=== PATIENT | male | born 1995 | race Caucasian/White ===

== ENCOUNTER 2017-02-09 20:31 | Emergency (ER) | payer MEDICAID, SELFPAY ==
[~2017-02-09] VITALS: Ht 170.2 cm; Wt 150.0 kg
[2017-02-09 20:36] VITALS: BP 125/64
[2017-02-09] MEDS ORDERED: TYLE500T78 PO (20:41)
== END 2017-02-10 02:30 | disposition left against medical advice (07) ==
LOC: M ED 20:31
DX: M54.9 Dorsalgia, unspecified (principal); Z53.21 Procedure and treatment not carried out due to patient leaving prior to being seen by health care provider

== ENCOUNTER 2017-09-22 14:02 | Emergency (ER) | payer SELFPAY ==
[2017-09-22] MEDS: ADACEL/BOOSTRIX VACCINE (DIPHTH/PERTUSS/ACELL/TETANUS)0.5ML SYR (90715) IM (14:00)
== END 2017-09-22 14:52 | disposition home or self-care (01) ==
LOC: M ED 14:02
DX: S91.331A Puncture wound without foreign body, right foot, initial encounter (principal); W45.0XXA Nail entering through skin, initial encounter; Y92.59 Other trade areas as the place of occurrence of the external cause; Y99.0 Civilian activity done for income or pay; F17.210 Nicotine dependence, cigarettes, uncomplicated
CPT/HCPCS: 73650

== ENCOUNTER 2019-08-21 01:35 | Emergency (ER) | payer SELFPAY ==
[~2019-08-21] VITALS: Ht 170.2 cm; Wt 68.2 kg
[2019-08-21 01:35] VITALS: BP 141/82
[~2019-08-21 01:35] MED LIST: CLEO300C2 PO; IBUP-1022 PO; TYLE500T78 PO
[2019-08-21] MEDS ORDERED: ACET-683 PO (01:40)
[2019-08-21] MEDS ORDERED: IBUP-1022 PO (01:59)
[2019-08-21] MEDS ORDERED: NORC1TAB7 PO (01:59)
[2019-08-21] MEDS ORDERED: AUGM875T28 PO (01:59)
[2019-08-21] MEDS ORDERED: IBUPROFEN 600 MG TAB PO ONE (02:00)
[2019-08-21] MEDS ORDERED: AUGMENTIN 875 MG TAB PO ONE (02:00)
[2019-08-21] MEDS ORDERED: NORCO 5/325MG TABLET (BULK FOR ED) PO ONE (02:00)
[2019-08-21] MEDS ORDERED: MAGICMW SSP (02:03)
[2019-08-21] MEDS ORDERED: ANBE20GE TOP (02:03)
== END 2019-08-21 02:25 | disposition home or self-care (01) ==
LOC: M ED 01:35
DX: K02.9 Dental caries, unspecified (principal); K03.81 Cracked tooth; F17.218 Nicotine dependence, cigarettes, with other nicotine-induced disorders

== ENCOUNTER 2020-05-06 19:14 | Emergency (ER) | payer MEDICAID, SELFPAY ==
[~2020-05-06] VITALS: Ht 167.6 cm; Wt 63.6 kg
[~2020-05-06 19:14] MED LIST changes: +ACET-683 PO; +ANBE20GE TOP; +AUGM875T28 PO; +MAGICMW SSP; +NORC1TAB7 PO
[2020-05-06] MEDS ORDERED: ACETAMINOPHEN TAB 650MG DOSE (2X325MG) PO ONE (19:45)
[2020-05-06] MEDS ORDERED: IBUPROFEN 800 MG TAB PO ONE (19:45)
[2020-05-06] MEDS ORDERED: ONDANSETRON 4 MG ORAL DISINTEGRATING TAB PO ONE (19:45)
--- NOTE | 2020-05-06 20:14 | REP ---
INDICATION: COUGH, SOB COMPARISON: None. TECHNIQUE: Portable AP view of the chest FINDINGS: The mediastinum and cardiac silhouette are within normal limits for portable technique. The lung everett are clear without acute consolidation, effusion, or pneumothorax. Skeletal structures are intact. IMPRESSION: No acute cardiopulmonary process appreciated. <Electronically signed by Richie Demarco > 05/06/202010
[2020-05-06] MEDS ORDERED: ONDA4TAB6 PO (21:57)
[2020-05-06 22:17] VITALS: BP 124/76
== END 2020-05-06 22:36 | disposition home or self-care (01) ==
LOC: M ED 19:14
DX: Z20.828 Contact with and (suspected) exposure to other viral communicable diseases (principal); B34.9 Viral infection, unspecified
CPT/HCPCS: 71045; 99284; Q0162; U0003

== ENCOUNTER 2020-05-29 11:14 | Emergency (ER) | payer MEDICAID, SELFPAY ==
[~2020-05-29] VITALS: Ht 170.2 cm; Wt 63.7 kg
[~2020-05-29 11:14] MED LIST changes: +ONDA4TAB6 PO
[2020-05-29] MEDS ORDERED: NS 1,000 ML IV ONE (12:00)
[2020-05-29 12:15] LABS: BASO % 0.2 % (0.0-1.0); EOS % 0.1 % (0.0-3.0); HEMATOCRIT 44.2 % (42.0-52.0); HEMOGLOBIN 14.8 g/dl (13.5-17.5); LYMPH # 1.6 10^3/uL (1.5-5.0); MEAN CORPUSCULAR HEMOGLOBIN 30.5 pg (27.0-33.0); MEAN CORPUSCULAR HGB CONC 33.5 g/dl (32.0-36.5); MEAN CORPUSCULAR VOLUME 91.1 fl (80.0-96.0); MONO # 1.2 10^3/uL (0.0-0.8); MONO % 6.3 % (0.0-5.0); NEUTROPHILS # 16.5 10^3/uL (1.5-8.5); NEUTROPHILS % 84.8 % (36.0-66.0); PLATELET COUNT, AUTOMATED 207 10^3/uL (150-450); RED BLOOD COUNT 4.85 10^6/uL (4.30-6.10); WHITE BLOOD COUNT 19.4 10^3/uL (4.0-10.0)
[2020-05-29 12:34] LABS: ERYTHROCYTE SEDIMENTATION RATE 21 mm/hr (0-15)
[2020-05-29 12:38] LABS: ALBUMIN 4.1 GM/DL (3.2-5.2); BILIRUBIN,DIRECT 0.4 MG/DL (0.0-0.2); BILIRUBIN,TOTAL 1.2 MG/DL (0.2-1.0); C REACTIVE PROTEIN QUANTITATIV 12.7 MG/DL (0.00-0.30); TOTAL PROTEIN 7.5 GM/DL (6.4-8.2)
[2020-05-29] MEDS ORDERED: ceFAZolin SOD 1 GM in D5W MINI-BAG PLUS 50 ML IV ONE (12:45)
[2020-05-29] MEDS ORDERED: KETOROLAC 30 MG/ML 1ML VIAL IV ONE (13:00)
[2020-05-29] MEDS ORDERED: ONDA4TAB6 PO (14:02)
[2020-05-29] MEDS ORDERED: DOXY100C37 PO (14:02)
[2020-05-29 14:16] VITALS: BP 126/61
== END 2020-05-29 14:22 | disposition home or self-care (01) ==
LOC: M ED 11:14
DX: S40.861A Insect bite (nonvenomous) of right upper arm, initial encounter (principal); W57.XXXA Bitten or stung by nonvenomous insect and other nonvenomous arthropods, initial encounter; Y92.89 Other specified places as the place of occurrence of the external cause; F17.210 Nicotine dependence, cigarettes, uncomplicated
CPT/HCPCS: 80047; 80076; 83605; 85025; 85652; 86140; 87040; 96361; 96365; 96375; 99284; J0690; J1885

== ENCOUNTER 2020-05-31 15:23 | Inpatient (IN) | payer MEDICAID ==
[~2020-05-31] VITALS: Ht 167.6 cm; Wt 60.8 kg
[~2020-05-31 15:23] MED LIST changes: +DOXY100C37 PO
--- OUTSIDE RECORDS SUMMARY | 2020-05-31 15:31 | CCD ---
Author Author [facility] Organization [facility] Address Unknown Phone Unavailable Support Name Relationship Address [place] [address] Unavailable [place] [address] - UE Next Of Kin Unknown Unavailable MULU ROSEN Next Of Kin [address] [place] [address] BRYAN [place] [address] ST Next Of Kin Unknown Unavailable MULU TOLBERT Next Of Kin [address] [place] [address] ALLY ROSEN Next Of Kin [address] [place] [address] Re-disclosure Warning The records that you are about to access may contain information from federally-assisted alcohol or drug abuse programs. If such information is present, then the following federally mandated warning applies: This information has been disclosed to you from records protected by federal confidentiality rules (42 CFR part 2). The federal rules prohibit you from making any further disclosure of this information unless further disclosure is expressly permitted by the written consent of the person to whom it pertains or as otherwise permitted by 42 CFR part 2. A general authorization for the release of medical or other information is NOT sufficient for this purpose. The Federal rules restrict any use of the information to criminally investigate or prosecute any alcohol or drug abuse patient.The records that you are about to access may contain highly sensitive health information, the redisclosure of which is protected by Article 27-F of the [facility] Public Health law. If you continue you may have access to information: Regarding HIV / AIDS; Provided by facilities licensed or operated by the [facility] Office of Mental Health; or Provided by the [facility] Office for People With Developmental Disabilities. If such information is present, then the following [facility] mandated warning applies: This information has been disclosed to you from confidential records which are protected by state law. State law prohibits you from making any further disclosure of this information without the specific written consent of the person to whom it pertains, or as otherwise permitted by law. Any unauthorized further disclosure in violation of state law may result in a fine or long term sentence or both. A general authorization for the release of medical or other information is NOT sufficient authorization for further disc losure. Insurance Providers Payer name Policy type / Coverage type Policy ID Covered alliance party ID Covered alliance party's relationship to gould Policy Gould Plan Information EMEDNY [id number] SP [id number] SELF PAY ONLY [id number] SP [id number] SELF PAY O [id number] S [id number] MEDICAID [id number] SP [id number] SELF PAY ONLY UNAVAILABLE UNAV AILABLE SELF PAY UNAVAILABLE UNAVAILA BLE O UNAVAILABLE UNAVAILA BLE AETNA [facility] [id number] MO2 [id number] HEALTH WELFARE BENEFIT SYS [id number] MO2 [id number] MEDICAID [id number] SP [id number] SRC AETNA [id number] MO2 [id number] 4 AETNA P [id number] C [id number] 4 Results ID Date Data Source [id number] 05/06/2020 07:14:00 PM EST [facility] Name Value Range Interpretation Code Description Data Mikayla rce(s) Supporting Document(s) SARS coronavirus 2 RNA [facility] This lab was ordered by [facility] and reported by [facility]. Procedure
[2020-05-31] MEDS ORDERED: IBUP200T45 PO ×2 (15:37)
[2020-05-31] MEDS ORDERED: ACET-897 PO (15:37)
--- OUTSIDE RECORDS SUMMARY | 2020-05-31 16:06 | CCD ---
Author Author [facility] Organization [facility] Address Unknown Phone Unavailable Support Name Relationship Address Phone [place] [address] Unavailable [place] [address] - UE Next Of Kin Unknown Unavailable MULU ROSEN Next Of Kin [address] [place] [address] BRYAN TOLBERT [place] [address] ST Next Of Kin Unknown Unavailable MULU TOLBERT Next Of Kin [address] [place] [address] ALLY ROSEN Next Of Kin [address] [place] [address] Re-disclosure Warning The records that you are [...] is protected by Article 27-F of the [facility] Public Health law. If you continue you may have access to information: Regarding HIV / AIDS; Provided by facilities licensed or operated by the [facility] Office of Mental Health; or Provided by the [facility] Office for People With Developmental Disabilities. If such information is present, then the following [facility] mandated warning applies: This information has [...] law may result in a fine or fci sentence or both. A general authorization for the release of medical or other information is NOT sufficient authorization for further disc losure. Insurance Providers Payer name Policy type / Coverage type Policy ID Covered democrat ID Covered democrat's relationship to gould Policy Gould Plan Information EMEDNY [id number] SP [id number] SELF PAY ONLY [id number] SP [id number] SELF PAY O [id number] S [id number] MEDICAID [id number] SP [id number] SELF PAY ONLY UNAVAILABLE UNAV AILABLE SELF PAY UNAVAILABLE UNAVAILA BLE O UNAVAILABLE UNAVAILA BLE AETNA [facility] [id number] MO2 [id number] HEALTH WELFARE BENEFIT SYS [id number] MO2 [id number] MEDICAID [id number] SP [id number] SRC AETNA [id number] MO2 [id number] 4 AETNA P [id number] C [id number] 4 Results ID Date Data Source [id number] 05/06/2020 07:14:00 PM EST [facility] Name Value Range Interpretation Code Description Data Mikayla rce(s) Supporting Document(s) SARS coronavirus 2 RNA [facility] This lab was ordered by [facility] and reported by [facility]. Procedure
[2020-05-31] MEDS ORDERED: NS 1,000 ML IV ONE (17:00)
[2020-05-31] MEDS ORDERED: VANCOMYCIN HCL 1,250 MG in IV FLUID PLACE HOLDER 1 EA IV ONE (17:00)
[2020-05-31] MEDS ORDERED: VANCOMYCIN HCL 750 MG, VIAL MATE ADAPTER 1 EACH in D5W 250 ML IV ONE (17:15)
[2020-05-31 18:00] LABS: BASO % 0.2 % (0.0-1.0); EOS # 0.1 10^3/uL (0.0-0.5); EOS % 0.8 % (0.0-3.0); HEMATOCRIT 42.9 % (42.0-52.0); HEMOGLOBIN 14.5 g/dl (13.5-17.5); LYMPH # 2.2 10^3/uL (1.5-5.0); LYMPH % 13.5 % (24.0-44.0); MEAN CORPUSCULAR HEMOGLOBIN 31.3 pg (27.0-33.0); MEAN CORPUSCULAR HGB CONC 33.8 g/dl (32.0-36.5); MEAN CORPUSCULAR VOLUME 92.5 fl (80.0-96.0); MONO % 6.1 % (0.0-5.0); NEUTROPHILS # 12.9 10^3/uL (1.5-8.5); NEUTROPHILS % 78.9 % (36.0-66.0); PLATELET COUNT, AUTOMATED 238 10^3/uL (150-450); RED BLOOD COUNT 4.64 10^6/uL (4.30-6.10); WHITE BLOOD COUNT 16.3 10^3/uL (4.0-10.0)
[2020-05-31] MEDS ORDERED: VANCOMYCIN HCL 500 MG in D5W MINI-BAG PLUS 100 ML IV ONE (18:15)
[2020-05-31 18:28] LABS: BILIRUBIN,DIRECT 0.2 MG/DL (0.0-0.2); BILIRUBIN,TOTAL 0.6 MG/DL (0.2-1.0); C REACTIVE PROTEIN QUANTITATIV 14.2 MG/DL (0.00-0.30); ERYTHROCYTE SEDIMENTATION RATE 43 mm/hr (0-15); TOTAL PROTEIN 7.6 GM/DL (6.4-8.2)
[2020-05-31] MEDS ORDERED: KETOROLAC 30 MG/ML 1ML VIAL IV ONE (18:30)
[2020-05-31] MEDS ORDERED: MOM 30ML SUSPENSION UDC PO PRN (20:15)
[2020-05-31] MEDS ORDERED: ACETAMINOPHEN TAB 650MG DOSE (2X325MG) PO PRN (20:15)
[2020-05-31] MEDS ORDERED: MAALOX 30 ML SUSP *UDC PO PRN (20:15)
[2020-05-31] MEDS ORDERED: NS 1,000 ML IV SCH (20:30)
--- OUTSIDE RECORDS SUMMARY | 2020-05-31 20:38 | CCD ---
Author Author [facility] Organization [facility] Address Unknown Phone Unavailable Support Name Relationship Address Phone [place] [address] Unavailable [place] [address] - UE Next Of Kin Unknown Unavailable MULU ROSEN Next Of Kin [address] [place] [address] BRYAN TOLBERT [place] [address] ST Next Of Kin Unknown Unavailable MULU TOLBERT Next Of Kin [address] [place] [address] ALLY ROSEN Next Of Kin [address] [place] [address] Re-disclosure Warning The records that you are [...] is protected by Article 27-F of the [facility] Public Health law. If you continue you may have access to information: Regarding HIV / AIDS; Provided by facilities licensed or operated by the [facility] Office of Mental Health; or Provided by the [facility] Office for People With Developmental Disabilities. If such information is present, then the following [facility] mandated warning applies: This information has [...] law may result in a fine or shelter sentence or both. A general authorization for the release of medical or other information is NOT sufficient authorization for further disc losure. Insurance Providers Payer name Policy type / Coverage type Policy ID Covered republican ID Covered republican's relationship to gould Policy Gould Plan Information EMEDNY [id number] SP [id number] SELF PAY ONLY [id number] SP [id number] SELF PAY O [id number] S [id number] MEDICAID [id number] SP [id number] SELF PAY ONLY UNAVAILABLE UNAV AILABLE SELF PAY UNAVAILABLE UNAVAILA BLE O UNAVAILABLE UNAVAILA BLE AETNA [facility] [id number] MO2 [id number] HEALTH WELFARE BENEFIT SYS [id number] MO2 [id number] MEDICAID [id number] SP [id number] SRC AETNA [id number] MO2 [id number] 4 AETNA P [id number] C [id number] 4 Results ID Date Data Source [id number] 05/06/2020 07:14:00 PM EST [facility] Name Value Range Interpretation Code Description Data Mikayla rce(s) Supporting Document(s) SARS coronavirus 2 RNA [facility] This lab was ordered by [facility] and reported by [facility]. Procedure
[2020-05-31 20:43] LABS: RSV AMPLIFICATION NEGATIVE (NEGATIVE)
[2020-05-31] MEDS ORDERED: VARENICLINE 0.5 MG TABLET PO SCH (21:00)
--- NOTE | 2020-05-31 21:01 | HPEPDOC ---
[facility] Medical History & Physical Date of Admission May 31, 2020 Date of Service: May 31, 2020 Attending Physician: RITA ROSE MD History and Physical TIME OF SERVICE: 934pm CHIEF COMPLAINT: arm swelling HISTORY OF PRESENT ILLNESS: This 25 yr old M presented on May 29 w c/o right arm redness and swelling possibly 2/2 spider bite; he was sent home w doxycyline, but returned this evening w c/o worsening pain redness and swelling along tingling in the arm with numbness. He has also had fevers chills and nausea w/o vomiting. He was stared on Vancomycin REVIEW OF SYSTEMS: 12-point review of systems negative except as listed in HPI PAST MEDICAL/ SURGICAL HISTORY: none SOCIAL HISTORY: + tobacco / no alcohol / + THC FAMILY HISTORY: none ALLERGIES: Please see below. HOME MEDICATIONS: Please see below. PHYSICAL EXAMINATION: Vital Signs Date Time Temp Pulse Resp B/P (MAP) Pulse Ox O2 Delivery O2 Flow Rate FiO2 05/31/20 15:23 97.6 94 18 112/72 (85) 100 Room Air GENERAL APPEARANCE: appears ill/ NAD HEENT: EOMI CARDIOVASCULAR: RRR/NMRG LUNGS: CTAB on RA ABDOMEN: Flat MUSCULOSKELETAL: TAWANDA x 4 / c/o pain w passive movement of the left shoulder and left elbow INTEGUMENT: redness extending across the posterior lateral upper arm down to the medial upper arm /there is a rounded fluid collection just posterior and inferior to the deltoid muscle NEUROLOGICAL:CN 2-12 intact /speech not dysarthric PSYCHIATRIC: A&O x 3 LABORATORY DATA: Laboratory Tests 05/31/20 17:44 Laboratory Tests 2 05/31/20 17:42: POC Glucose (Misc Panel) 91, POC Sodium (Misc Panel) 140, POC Potassium (Misc Panel) 3.6, POC Chloride (Misc Panel) 101, POC Total CO2 (Misc Panel) 31.0H, POC Blood Urea Nitrogen (Misc Panel 9, POC Ionized Calcium (Misc Panel) 4.9, POC Creatinine (Misc Panel) 0.7, POC Hematocrit (Misc Panel) 44.0 05/31/20 17:44: Immature Granulocyte % (Auto) 0.5, Neutrophils (%) (Auto) 78.9H, Lymphocytes (%) (Auto) 13.5L, Monocytes (%) (Auto) 6.1H, Eosinophils (%) (Auto) 0.8, Basophils (%) (Auto) 0.2, Neutrophils # (Auto) 12.9H, Lymphocytes # (Auto) 2.2, Monocytes # (Auto) 1.0H, Eosinophils # (Auto) 0.1, Basophils # (Auto) 0.0, Nucleated Red Blood Cells % (auto) 0.0, Erythrocyte Sedimentation Rate 43H, Lactic Acid Level 1.0, Total Bilirubin 0.6, Direct Bilirubin 0.2, Aspartate Amino Transf (AST/SGOT) 14, Alanine Aminotransferase (ALT/SGPT) 18, Alkaline Phosphatase 82, C-Reactive Protein, Quantitative 14.20H, Total Protein 7.6, Albumin 4.0, Albumin/Globulin Ratio 1.1 05/31/20 19:53: Coronavirus (COVID-19)(PCR) NEGATIVE, Influenza Type A (RT-PCR) NEGATIVE, Influenza Type B (RT-PCR) NEGATIVE, Respiratory Syncytial Virus (PCR) NEGATIVE 05/31/20 20:48: IMAGING: n/a MICROBIOLOGY: blood cx pending ASSESSMENT: is a 25 yr old who will be admitted for management of RUE abscess with cellulitis. PLAN: 1. RUE Abscess with Cellulitis WBC, CRP & ESR elevated Plan: admit to medical floor/ called to perform I&D / f/u CPK and lactic acid t screen for NEC fasciitis / IV Cefazolin for MSSA and beta hemolytic strep + Vancomycin for MRSA and beta hemolytic strep 2.Tobacco Abuse Plan: nicotine patch/ smoking cessation education / per ATS 2020 guidelines start varenicline for 12 weeks DVT Px w SCDs Home after more than 2 midnights stay Home Medications Scheduled Doxycycline Monohydrate (Doxycycline Monohydrate) 100 Mg Capsule, 100 MG PO Q12H Scheduled PRN Acetaminophen (Tylenol Extra Strength) 500 Mg Tablet, 500 MG PO Q4H PRN for PAIN Ibuprofen (Ibu-200) 200 Mg Tablet, 400 MG PO Q4H PRN for PAIN Ondansetron (Ondansetron Odt) 4 Mg Tab.rapdis, 4 MG PO Q6-8HP PRN for nausea/vomiting Allergies Coded Allergies: No Known Allergies (Unverified , 02/09/17) A-FIB/CHADSVASC A-FIB History Current/History of A-Fib/PAF?: No Current PO Anticoag Therapy: No RITA ROSE MD May 31, 2020 21:01
[2020-05-31 21:22] LABS: AMPHETAMINES LEVEL URINE NEGATIVE (NEGATIVE); BARBITURATES URINE NEGATIVE (NEGATIVE); BENZODIAZEPINES URINE NEGATIVE (NEGATIVE); CANNABINOIDS URINE POSITIVE (NEGATIVE); COCAINE METABOLITE URINE NEGATIVE (NEGATIVE); METHADONE URINE NEGATIVE (NEGATIVE); OPIATES URINE NEGATIVE (NEGATIVE); PHENCYCLIDINE URINE NEGATIVE (NEGATIVE)
[2020-05-31] MEDS ORDERED: LIDOCAINE 1% MDV 20ML VIAL IM ONE (22:00)
[2020-05-31] MEDS ORDERED: ceFAZolin SOD 1 GM in D5W MINI-BAG PLUS 50 ML IV SCH (22:00)
[2020-05-31] MEDS ORDERED: MORPHINE 2 MG/ML 1ML VIAL (J2270) IV PRN (23:15)
[2020-05-31] MEDS ORDERED: ONDANSETRON 4MG/2ML VIAL IV PRN (23:15)
[2020-06-01] MEDS ORDERED: ceFAZolin SOD 1 GM in D5W MINI-BAG PLUS 50 ML IV SCH ×2
[2020-06-01] MEDS ORDERED: PILL CUTTER 1 EACH XX PRN (00:15)
[2020-06-01] MEDS: NICOTINE 21MG/24HR 1 EA TRANSDERMAL TD SCH ×3 (01:01→13:47)
[2020-06-01] MEDS: ceFAZolin SOD 1 GM in D5W MINI-BAG PLUS 50 ML IV SCH ×3 (01:02→18:03)
[2020-06-01 01:38] VITALS: BP 126/77
[2020-06-01 06:00] VITALS: BP 106/72
[2020-06-01 06:50] LABS: HEMATOCRIT 36.7 % (42.0-52.0); HEMOGLOBIN 12.4 g/dl (13.5-17.5); MEAN CORPUSCULAR HEMOGLOBIN 31.1 pg (27.0-33.0); MEAN CORPUSCULAR HGB CONC 33.8 g/dl (32.0-36.5); PLATELET COUNT, AUTOMATED 191 10^3/uL (150-450); RED BLOOD COUNT 3.99 10^6/uL (4.30-6.10)
[2020-06-01 07:17] LABS: BLOOD UREA NITROGEN 8 MG/DL (7-18); CALCIUM LEVEL 8.4 MG/DL (8.5-10.1); CARBON DIOXIDE LEVEL 29 MEQ/L (21-32); CHLORIDE LEVEL 107 MEQ/L (98-107); CREATININE FOR GFR 0.62 MG/DL (0.70-1.30); GLOMERULAR FILTRATION RATE > 60.0 (>60); GLUCOSE, FASTING 92 MG/DL (70-100); POTASSIUM SERUM 3.7 MEQ/L (3.5-5.1); SODIUM LEVEL 141 MEQ/L (136-145)
[2020-06-01] MEDS: VANCOMYCIN HCL 1,000 MG, VIAL MATE ADAPTER 1 EACH in D5W 250 ML IV SCH ×2 (08:16→16:36)
--- NOTE | 2020-06-01 09:08 | REP ---
INDICATION: swelling arm, concern for abscess. Repeat dictation. Preliminary report is provided at the time of the exam by sarah ROBLEDO. COMPARISON: None. TECHNIQUE: Sonographic scanning is performed in the area of swelling. FINDINGS: Scanning in the area of the swelling and redness in the right lateral deltoid region shows a 5.1 x 0.8 x 3.6 cm complex fluid collection in the subcutaneous space with surrounding edematous fat. This is consistent with a abscess. IMPRESSION: Findings consistent with subcutaneous abscess as above. <Electronically signed by Milo Armstrong > 06/01/20 0904
[2020-06-01 14:00] VITALS: BP 110/74
--- NOTE | 2020-06-01 14:52 | IPNPDOC ---
Date Seen The patient was seen on 06/01/20. Progress Note SUBJECTIVE: Improved pain, erythema and swelling today. Still slightly suppurative, cultures pending. denies fevers, chills, n/v/d. OBJECTIVE: PHYSICAL EXAMINATION: Vital Signs: Please see below GENERAL APPEARANCE: NAD, sitting up in bed HEENT: EOMI CARDIOVASCULAR: RRR/NMRG LUNGS: CTAB on RA ABDOMEN: Flat MUSCULOSKELETAL: TAWANDA x 4 / still c/o pain w passive movement of the left shoulder and left elbow INTEGUMENT: improved swelling, erythema across the posterior lateral upper arm down to the medial upper arm / decreased size of area posterior and inferior to the deltoid muscle where abscess is, incision appears clean, scabbed other lesion has not changed in size near the incision of the right tricept NEUROLOGICAL:CN 2-12 intact /speech not dysarthric PSYCHIATRIC: Flat affect LABORATORY DATA: Please see below IMAGING: Right upper ext US: Scanning in the area of the swelling and redness in the right lateral deltoid region shows a 5.1 x 0.8 x 3.6 cm complex fluid collection in the subcutaneous space with surrounding edematous fat. This is consistent with a abscess. MICROBIOLOGY: Wound GS: Few WBC, Gram pos cocci in pairs and chains Wound Cx: pending blood cx pending ASSESSMENT: is a 25 yr old who will be admitted for management of RUE abscess with cellulitis. PLAN: RUE Abscess with Cellulitis s/p I&D 05/31/20 -WBC wnl this AM, afebrile, improved erythema and swelling -F/u Wound Cx, blood cultures -On cefazolin and Vancomycin -Surgery has seen already, not more for them to follow Tobacco Abuse -Nicotine patch/ smoking cessation education DVT Px -SCDs DISPOSITION: Plan is d/c home when medically improved, cx return. VS, I&O, 24H, Fishbone Vital Signs/I&O Vital Signs Date Time Temp Pulse Resp B/P (MAP) Pulse Ox O2 Delivery O2 Flow Rate FiO2 06/01/20 06:00 97.6 64 18 106/72 (83) 100 Room Air I&O- Last 24 Hours up to 6 AM 06/01/20 06:00 Intake Total 1935 ml Balance 1935 ml Laboratory Data 24H LABS Laboratory Tests 2 05/31/20 17:42: POC Glucose (Misc Panel) 91, POC Sodium (Misc Panel) 140, POC Potassium (Misc Panel) 3.6, POC Chloride (Misc Panel) 101, POC Total CO2 (Misc Panel) 31.0H, POC Blood Urea Nitrogen (Misc Panel 9, POC Ionized Calcium (Misc Panel) 4.9, POC Creatinine (Misc Panel) 0.7, POC Hematocrit (Misc Panel) 44.0 05/31/20 17:44: Immature Granulocyte % (Auto) 0.5, Neutrophils (%) (Auto) 78.9H, Lymphocytes (%) (Auto) 13.5L, Monocytes (%) (Auto) 6.1H, Eosinophils (%) (Auto) 0.8, Basophils (%) (Auto) 0.2, Neutrophils # (Auto) 12.9H, Lymphocytes # (Auto) 2.2, Monocytes # (Auto) 1.0H, Eosinophils # (Auto) 0.1, Basophils # (Auto) 0.0, Nucleated Red Blood Cells % (auto) 0.0, Erythrocyte Sedimentation Rate 43H, Lactic Acid Level 1.0, Total Bilirubin 0.6, Direct Bilirubin 0.2, Aspartate Amino Transf (AST/SGOT) 14, Alanine Aminotransferase (ALT/SGPT) 18, Alkaline Phosphatase 82, C-Reactive Protein, Quantitative 14.20H, Total Protein 7.6, Albumin 4.0, Albumin/Globulin Ratio 1.1 05/31/20 19:53: Coronavirus (COVID-19)(PCR) NEGATIVE, Influenza Type A (RT-PCR) NEGATIVE, Influenza Type B (RT-PCR) NEGATIVE, Respiratory Syncytial Virus (PCR) NEGATIVE 05/31/20 20:48: Urine Color YELLOW, Urine Appearance HAZY, Urine pH 5.0, Urine Specific [place] 1.019, Urine Protein 1+H, Urine Glucose (UA) NEGATIVE, Urine Ketones NEGATIVE, Urine Blood NEGATIVE, Urine Nitrite NEGATIVE, Urine Bilirubin NEGATIVE, Urine Urobilinogen 2.0H, Urine Leukocyte Esterase NEGATIVE, Urine WBC (Auto) 1, Urine RBC (Auto) 1, Urine Hyaline Casts (Auto) 0, Urine Bacteria (Auto) NEGATIVE, Urine Squamous Epithelial Cells 0, Urine Mucus (Auto) SMALL, Urine Sperm (Auto) , Urine Opiates Screen NEGATIVE, Urine Methadone Screen NEGATIVE, Urine Barbiturates Screen NEGATIVE, Urine Phencyclidine Screen NEGATIVE, Urine Amphetamines Screen NEGATIVE, Urine Benzodiazepines Screen NEGATIVE, Urine Cocaine Metabolite Screen NEGATIVE, Urine Cannabinoids Screen POSITIVEH 05/31/20 21:30: Total Creatine Kinase 48 06/01/20 06:37: Nucleated Red Blood Cells % (auto) 0.0, Anion Gap 5L, Glomerular Filtration Rate > 60.0, Calcium Level 8.4L CBC/BMP Laboratory Tests 05/31/20 17:44 06/01/20 06:37 Microbiology Microbiology 05/31/20 Gram Stain - Final, Resulted 05/31/20 Abscess Culture, Resulted Pending 05/31/20 Blood Culture, Received Pending 05/31/20 Blood Culture, Received Pending 05/31/20 Blood Culture, Received Pending Current Medications Current Medications Medications (Trade) Dose Ordered Sig/Ernie Route PRN Reason Start Time Stop Time Status Last Admin Dose Admin Acetaminophen (Tylenol Tab) 650 mg Q4H PRN PO PAIN OR FEVER 05/31/20 20:15 Al Hydrox/Mg Hydrox/Simethicone (Mylanta) 30 ml DAILY PRN PO DYSPEPSIA 05/31/20 20:15 Cefazolin Sodium 1 gm/Dextrose 50 ml @ 100 mls/hr Q8H IV 05/31/20 22:00 06/01/20 00:01 DC Cefazolin Sodium 1 gm/Dextrose 50 ml @ 100 mls/hr Q8H IV 06/01/20 00:00 06/01/20 00:03 DC Cefazolin Sodium 1 gm/Dextrose 50 ml @ 100 mls/hr Q8H IV 06/01/20 01:00 06/01/20 09:48 Home Med (Med Rec Complete!) ASDIRECTED XX 05/31/20 20:15 05/31/20 20:05 DC Magnesium Hydroxide (Milk Of Magnesia) 30 ml DAILY PRN PO CONSTIPATION 05/31/20 20:15 Morphine Sulfate (Morphine Sulfate Inj) 1 mg Q2H PRN IV MODERATE PAIN (PS 5-7) 05/31/20 23:15 Nicotine (Nicoderm Cq 21mg) 1 patch QHS TD 05/31/20 21:00 06/01/20 13:47 Ondansetron HCl (ZOFRAN INJection) 4 mg Q4HP PRN IV NAUSEA OR VOMITING 05/31/20 23:15 Sodium Chloride 1,000 ml @ 100 mls/hr Q10H IV 05/31/20 20:30 05/31/20 23:15 DC 05/31/20 22:36 Vancomycin HCl 1000 mg/IV Miscellaneous Supplies 1 each/ Dextrose 270 ml @ 270 mls/hr Q8H IV 06/01/20 08:00 06/01/20 08:16 Varenicline (Chantix) 0.5 mg BID PO 06/03/20 09:00 Varenicline (Chantix) 0.5 mg QHS PO 05/31/20 21:00 Allergies Coded Allergies: No Known Allergies (Unverified , 02/09/17) Hoda Lehman MD Jun 01, 2020 14:52
[2020-06-01 22:00] VITALS: BP 130/76
[2020-06-02] MEDS: VANCOMYCIN HCL 1,000 MG, VIAL MATE ADAPTER 1 EACH in D5W 250 ML IV SCH (00:21)
[2020-06-02] MEDS: ceFAZolin SOD 1 GM in D5W MINI-BAG PLUS 50 ML IV SCH ×3 (01:54→19:08)
[2020-06-02 06:00] VITALS: BP 112/67
[2020-06-02 07:24] LABS: HEMATOCRIT 40.7 % (42.0-52.0); HEMOGLOBIN 13.3 g/dl (13.5-17.5); MEAN CORPUSCULAR HEMOGLOBIN 30.2 pg (27.0-33.0); MEAN CORPUSCULAR HGB CONC 32.7 g/dl (32.0-36.5); MEAN CORPUSCULAR VOLUME 92.5 fl (80.0-96.0); PLATELET COUNT, AUTOMATED 276 10^3/uL (150-450); WHITE BLOOD COUNT 8.8 10^3/uL (4.0-10.0)
[2020-06-02 07:43] LABS: ALBUMIN 3.2 GM/DL (3.2-5.2); ALT/SGPT 17 U/L (12-78); BILIRUBIN,TOTAL 0.4 MG/DL (0.2-1.0); BLOOD UREA NITROGEN 8 MG/DL (7-18); CALCIUM LEVEL 9.3 MG/DL (8.5-10.1); CARBON DIOXIDE LEVEL 30 MEQ/L (21-32); CHLORIDE LEVEL 103 MEQ/L (98-107); CREATININE FOR GFR 0.84 MG/DL (0.70-1.30); GLOMERULAR FILTRATION RATE > 60.0 (>60); GLUCOSE, FASTING 92 MG/DL (70-100); SODIUM LEVEL 141 MEQ/L (136-145); TOTAL PROTEIN 6.5 GM/DL (6.4-8.2)
[2020-06-02] MEDS: NICOTINE 21MG/24HR 1 EA TRANSDERMAL TD SCH (08:11)
[2020-06-02] MEDS: VANCOMYCIN HCL 750 MG, VIAL MATE ADAPTER 1 EACH in D5W 250 ML IV SCH ×2 (08:11→16:19)
[2020-06-02] MEDS: VANCOMYCIN HCL 500 MG in D5W MINI-BAG PLUS 100 ML IV SCH ×2 (10:04→18:05)
--- NOTE | 2020-06-02 10:45 | CR ---
CONSULTATION DATE: 06/01/2020 LOCATION OF CONSULTATION: Emergency department. REASON FOR CONSULTATION: Right upper arm abscess. HISTORY OF PRESENT ILLNESS: Patient is a 25-year-old man who presented to the emergency department on the evening of May 31, 2020 complaining of worsening swelling and pain in his right upper extremity. He reports that he has had about a four day history of redness, pain and swelling high in the right upper arm. He reports this is secondary to a spider bite, though to my knowledge, there are not any viejas spiders that are typically known to cause this problem. He reports that he had some redness and swelling and he was seen in the emergency department on May 29, 2020. He was started on doxycycline and sent home, but reports that the process has worsened over time. In the emergency department he had an ultrasound that suggested an underlying irregular fluid collection. I was consulted. ALLERGIES: Patient denies any known drug allergies. HOME MEDICATIONS: He has been taking some Tylenol or ibuprofen as needed and some doxycycline 100 mg by mouth twice daily over the last 1-2 days. MEDICAL HISTORY: He reports having had an infection in the right forearm previously, six months to a year ago. SURGICAL HISTORY: Negative. SOCIAL HISTORY: He does smoke, but denies any significant alcohol use. FAMILY HISTORY: Noncontributory. REVIEW OF SYSTEMS: He has had a sensation of chills and some nausea. He denies any chest pain or palpitations. He has had no cough, wheezing or sputum production. He denies any gastrointestinal (GI) or genitourinary () symptoms otherwise. PHYSICAL EXAMINATION: In the emergency department, he was afebrile. GENERAL APPEARANCE: A healthy young man. EXAMINATION OF RIGHT UPPER EXTREMITY: Shows an approximately 3-4 x 8-10 cm area of redness and swelling on the posterolateral aspect of the proximal right upper arm. He has some faint redness extending down the lateral upper arm, about to the antecubital fossa. There is a small ulcerated area, about 6-8 mm in diameter at the top of the area of redness and swelling. There is no drainage from this at this time. There does appear to be some fluctuance, particularly in the posterior aspect of the raised area, about 2-3 cm below the small ulceration. LABORATORY STUDIES: White count of 16 with a differential showing 79% neutrophils, 14% lymphocytes and 6% monocytes. Chemistry profile showed normal electrolytes, BUN, creatinine and glucose. IMPRESSION: Abscess, right proximal upper arm. PLAN: I have recommended incision and drainage of his abscess. There is an irregular area of fluid in the upper arm, as identified on his ultrasound. There does appear to be a fluctuant area that should be able to be drained readily. I advised him that he will certainly improve faster if the infection is allowed to drain adequately. He is agreeable with the plan for drainage. A separate procedure note with be dictated regarding this. The patient will then be admitted by the hospitalist for management of the antibiotics.
--- NOTE | 2020-06-02 10:45 | IPN ---
PROGRESS NOTE DATE: 05/31/2020 HISTORY: The patient is now postop day number one from incision and drainage of an abscess of the right upper arm on the posterolateral surface. He reports the discomfort is diminished. PHYSICAL EXAMINATION: Vital signs show that he has been afebrile since admission. His pulse is in the 60s and his blood pressure is good. Intake and output show that he had 1385 in yesterday and there is no urine output recorded. The patient is sitting up in his bed when I entered the room. There is no bandage on his arm. He indicates he has been waiting for the nurse to come back to put a new bandage on. The redness of the upper arm seems to have faded significantly. His incision site is about a cm and a half and is wide open. With gentle pressure around the wound, there is still a small amount of purulent fluid that can be expressed. I reapplied a new dressing. Gram stain shows gram-positive cocci in pairs and clusters. CBC shows a white count of 10 which is down from 16 last evening. His hemoglobin is 12 with a hematocrit of 37 and a platelet count of 191,000. IMPRESSION: The patient is doing well since drainage of his abscess. RECOMMENDATIONS: I would continue his antibiotics and adjust these as necessary based on the culture and sensitivity when these are available. He should continue with four times daily warm soaks or showers to the area until this has closed.
--- NOTE | 2020-06-02 11:02 | RO ---
OPERATIVE NOTE DATE OF OPERATION: 05/31/2020 PREOPERATIVE DIAGNOSIS: Right upper arm abscess. POSTOPERATIVE DIAGNOSIS: Right upper arm abscess. PROCEDURE PERFORMED: Incision and drainage of abscess. SURGEON: Toribio Shah MD REC THERAPIST: ANESTHESIA: Local anesthesia 1% Xylocaine without Epinephrine. INDICATIONS FOR PROCEDURE: The patient is a 25-year-old man with roughly four day history of worsening infection of the right upper arm. Examination suggests an abscess and ultrasound showed an irregular subcutaneous fluid collection. He is now for drainage. DESCRIPTION OF PROCEDURE: The patient was positioned on his left side. The right upper arm was prepped with Betadine and draped to expose the area of the abscess. Local anesthesia was achieved by infiltration of 1% Xylocaine over an area of fluctuance. An approximately 1.5 to 2 cm longitudinal incision was then made with 15-blade. There was a large amount of purulent fluid that returned. A specimen was obtained for Gram stain and culture and sensitivity. The wound was gently manipulated to express as much fluid as possible. The wound was then wicked with a small piece of gauze and bulky bandage was applied. The patient tolerated the procedure well.
[2020-06-02 14:00] VITALS: BP 132/94
--- NOTE | 2020-06-02 15:49 | IPNPDOC ---
Date Seen The patient was seen on 06/02/20. Progress Note SUBJECTIVE: Improving pain, erythema and swelling, wound culture sensitivities pending and, according to micro/lab, will not be back until 06/03. Still suppurative, c/w wound care. Pt denies fevers, chills, n/v/d. OBJECTIVE: PHYSICAL EXAMINATION: Vital Signs: Please see below GENERAL APPEARANCE: NAD, sitting up in bed HEENT: EOMI CARDIOVASCULAR: RRR/NMRG LUNGS: CTAB on RA ABDOMEN: Flat MUSCULOSKELETAL: TAWANDA x 4 / still c/o pain w passive movement of the left shoulder and left elbow INTEGUMENT: improved swelling, erythema across the posterior lateral upper arm down to the medial upper arm / decreased size of area posterior and inferior to the deltoid muscle where abscess is, incision slightly suppurative, scabbed other lesion has not changed in size near the incision of the right tricep NEUROLOGICAL:CN 2-12 intact /speech not dysarthric PSYCHIATRIC: Flat affect LABORATORY DATA: Please see below IMAGING: Right upper ext US: Scanning in the area of the swelling and redness in the right lateral deltoid region shows a 5.1 x 0.8 x 3.6 cm complex fluid collection in the subcutaneous space with surrounding edematous fat. This is consistent with a abscess. MICROBIOLOGY: Wound GS: Few WBC, Gram pos cocci in pairs and chains Wound Cx: Staph aureus (likely MSSA) Blood cx: NG ASSESSMENT: is a 25 yr old who is admitted for further treatment of RUE abscess wit h cellulitis. PLAN: RUE Abscess with Cellulitis s/p I&D 05/31/20 -WBC wnl , afebrile, further improved erythema and swelling -Wound cx: staph aureus, sensitivities pending -On cefazolin and Vancomycin -Surgery has seen Tobacco Abuse -Nicotine patch/ smoking cessation education DVT Px -SCDs DISPOSITION: Plan is d/c home when medically improved, cx return. VS, I&O, 24H, Fishbone Vital Signs/I&O Vital Signs Date Time Temp Pulse Resp B/P (MAP) Pulse Ox O2 Delivery O2 Flow Rate FiO2 06/02/20 14:00 99.3 76 20 132/94 (107) 99 Room Air I&O- Last 24 Hours up to 6 AM 06/02/20 06:00 Intake Total 2690 ml Output Total 200 ml Balance 2490 ml Laboratory Data 24H LABS Laboratory Tests 2 06/02/20 07:03: Nucleated Red Blood Cells % (auto) 0.0, Anion Gap 8, Glomerular Filtration Rate > 60.0, Calcium Level 9.3, Total Bilirubin 0.4, Aspartate Amino Transf (AST/SGOT) 12, Alanine Aminotransferase (ALT/SGPT) 17, Alkaline Phosphatase 68, Total Protein 6.5, Albumin 3.2, Albumin/Globulin Ratio 1.0, Vancomycin Level Trough 10.7 CBC/BMP Laboratory Tests 06/02/20 07:03 Microbiology Microbiology 05/31/20 Gram Stain - Final, Resulted 05/31/20 Abscess Culture - Preliminary, Resulted Staphylococcus Aureus 05/31/20 Blood Culture - Preliminary, Resulted No growth after 24 hours . All specim... 05/31/20 Blood Culture - Preliminary, Resulted No growth after 24 hours . All specim... 05/31/20 Blood Culture - Preliminary, Resulted No growth after 24 hours . All specim... Current Medications Current Medications Medications (Trade) Dose Ordered Sig/Ernie Route PRN Reason Start Time Stop Time Status Last Admin Dose Admin Acetaminophen (Tylenol Tab) 650 mg Q4H PRN PO PAIN OR FEVER 05/31/20 20:15 Al Hydrox/Mg Hydrox/Simethicone (Mylanta) 30 ml DAILY PRN PO DYSPEPSIA 05/31/20 20:15 Cefazolin Sodium 1 gm/Dextrose 50 ml @ 100 mls/hr Q8H IV 05/31/20 22:00 06/01/20 00:01 DC Cefazolin Sodium 1 gm/Dextrose 50 ml @ 100 mls/hr Q8H IV 06/01/20 00:00 06/01/20 00:03 DC Cefazolin Sodium 1 gm/Dextrose 50 ml @ 100 mls/hr Q8H IV 06/01/20 01:00 06/02/20 11:04 Home Med (Med Rec Complete!) ASDIRECTED XX 05/31/20 20:15 05/31/20 20:05 DC Magnesium Hydroxide (Milk Of Magnesia) 30 ml DAILY PRN PO CONSTIPATION 05/31/20 20:15 Morphine Sulfate (Morphine Sulfate Inj) 1 mg Q2H PRN IV MODERATE PAIN (PS 5-7) 05/31/20 23:15 Nicotine (Nicoderm Cq 21mg) 1 patch DAILY TD 1/28/21 09:00 06/02/20 08:11 Nicotine (Nicoderm Cq 21mg) 1 patch QHS TD 05/31/20 21:00 06/01/20 15:56 DC 06/01/20 13:47 Ondansetron HCl (ZOFRAN INJection) 4 mg Q4HP PRN IV NAUSEA OR VOMITING 05/31/20 23:15 Sodium Chloride 1,000 ml @ 100 mls/hr Q10H IV 05/31/20 20:30 05/31/20 23:15 DC 05/31/20 22:36 Vancomycin HCl 500 mg/Dextrose 110 ml @ 110 mls/hr Q8H IV 06/02/20 09:00 06/02/20 10:04 Vancomycin HCl 750 mg/IV Miscellaneous Supplies 1 each/ Dextrose 275 ml @ 275 mls/hr Q8H IV 06/02/20 08:00 06/02/20 08:11 Vancomycin HCl 1000 mg/IV Miscellaneous Supplies 1 each/ Dextrose 270 ml @ 270 mls/hr Q8H IV 06/01/20 08:00 06/02/20 07:51 DC 06/02/20 00:21 Varenicline (Chantix) 0.5 mg BID PO 06/03/20 09:00 06/01/20 14:52 DC Varenicline (Chantix) 0.5 mg QHS PO 05/31/20 21:00 06/01/20 14:52 DC Allergies Coded Allergies: No Known Allergies (Unverified , 02/09/17) Hoda Lehman MD Jun 02, 2020 15:49
--- NOTE | 2020-06-02 18:33 | IPN ---
PROGRESS NOTE DATE: 06/02/2020 HISTORY: Patient is now postoperative day two from incision and drainage from a proximal right upper arm abscess. He reports that he is feeling much better today. Vital signs show that he has been afebrile over the past 24 hours. Pulse is in the 60s to low 70s and his blood pressure is excellent. Intake and output shows 3000 ml in yesterday and his urine is not recorded. PHYSICAL EXAMINATION: The swelling and redness in the upper arm has diminished markedly and all of the redness in his more distal upper arm has resolved. LABORATORY STUDIES: Show that his white count is down to 9 today. Chemistries are normal. His culture is growing Staphylococcus aureus. IMPRESSION: Patient is doing very well following his incision and drainage (I and D) for a Staphylococcal abscess and cellulitis. RECOMMENDATIONS: The patient can be discharged home on appropriate antibiotics once his culture and sensitivities have returned. He should continue with four times daily warm, moist compresses or showers to the area to promote drainage. I would recommend he follow up with me in the office in 10-14 days following discharge for a final check on his arm.
[2020-06-02 22:00] VITALS: BP 117/72
[2020-06-03] MEDS: VANCOMYCIN HCL 750 MG, VIAL MATE ADAPTER 1 EACH in D5W 250 ML IV SCH (00:22)
[2020-06-03] MEDS: VANCOMYCIN HCL 500 MG in D5W MINI-BAG PLUS 100 ML IV SCH (01:50)
[2020-06-03] MEDS: ceFAZolin SOD 1 GM in D5W MINI-BAG PLUS 50 ML IV SCH ×2 (03:05→08:42)
[2020-06-03 06:00] VITALS: BP 106/59
[2020-06-03 06:55] LABS: MEAN CORPUSCULAR HEMOGLOBIN 30.2 pg (27.0-33.0); MEAN CORPUSCULAR HGB CONC 33.3 g/dl (32.0-36.5); MEAN CORPUSCULAR VOLUME 90.7 fl (80.0-96.0); PLATELET COUNT, AUTOMATED 303 10^3/uL (150-450); RED BLOOD COUNT 4.63 10^6/uL (4.30-6.10); WHITE BLOOD COUNT 8.4 10^3/uL (4.0-10.0)
[2020-06-03 07:25] LABS: ALBUMIN 3.3 GM/DL (3.2-5.2); ALT/SGPT 15 U/L (12-78); BILIRUBIN,TOTAL 0.3 MG/DL (0.2-1.0); BLOOD UREA NITROGEN 10 MG/DL (7-18); CALCIUM LEVEL 8.9 MG/DL (8.5-10.1); CARBON DIOXIDE LEVEL 30 MEQ/L (21-32); CHLORIDE LEVEL 104 MEQ/L (98-107); CREATININE FOR GFR 0.73 MG/DL (0.70-1.30); GLOMERULAR FILTRATION RATE > 60.0 (>60); GLUCOSE, FASTING 86 MG/DL (70-100); POTASSIUM SERUM 3.9 MEQ/L (3.5-5.1); SODIUM LEVEL 139 MEQ/L (136-145); TOTAL PROTEIN 6.7 GM/DL (6.4-8.2); VANCOMYCIN LEVEL TROUGH 24.7 UG/ML (10.0-20.0)
[2020-06-03] MEDS ORDERED: CLIN150C15 PO (08:22)
[2020-06-03] MEDS ORDERED: PROB1CAP10 PO (08:22)
[2020-06-03] MEDS: NICOTINE 21MG/24HR 1 EA TRANSDERMAL TD SCH (08:42)
[2020-06-03] MEDS ORDERED: VARENICLINE 0.5 MG TABLET PO SCH (09:00)
[2020-06-03] MEDS ORDERED: VANCOMYCIN HCL 1,000 MG, VIAL MATE ADAPTER 1 EACH in D5W 250 ML IV SCH (12:00)
--- NOTE | 2020-06-03 19:55 | DS.PDOC ---
Discharge Summary General Date of Admission May 31, 2020 at 20:09 Date of Discharge 06/03/20 Attending Physician: Hoda Lehman MD Discharge Summary HISTORY OF PRESENT ILLNESS: This 25 yr old M presented on May 29, 2020 w c/o right arm redness and swelling possibly 2/2 spider bite; he was sent home w doxycyline, but returned this evening w c/o worsening pain redness and swelling along tingling in the arm with numbness. He has also had fevers chills and nausea w/o vomiting. He was stared on Vancomycin. US of RUE showed abscess, later drained by surgery. He had extensive cellulitis and was started on IV abx. Admitted for RUE abscess, cellulitis HOSPITAL COURSE: Patient improved gradually over hospital course with IV abx. Wound was intermittently suppurative but WBC improved, he was afebrile and cellulitis improved. On 06/03/30 WCx came back MRSA. He was discharged home with PO clindamycin, probiotic and follow up with surgery in 10-14 days. patient was given the number for clinic for follow up if he chooses to establish with local PCP. At time of discharge, he had no acute complaints. PAST MEDICAL/ SURGICAL HISTORY: none SOCIAL HISTORY: + tobacco / no alcohol / + THC FAMILY HISTORY: none PHYSICAL EXAMINATION: Vital Signs: Please see below GENERAL APPEARANCE: NAD, sitting up in bed HEENT: EOMI CARDIOVASCULAR: RRR/NMRG LUNGS: CTAB on RA ABDOMEN: Flat MUSCULOSKELETAL: TAWANDA x 4 / still c/o pain w passive movement of the left shoulder and left elbow INTEGUMENT: improved swelling, erythema across the posterior lateral upper arm down to the medial upper arm / decreased size of area posterior and inferior to the deltoid muscle where abscess is, incision slightly suppurative, scabbed other lesion has not changed in size near the incision of the right tricep NEUROLOGICAL:CN 2-12 intact /speech not dysarthric PSYCHIATRIC: Flat affect LABORATORY DATA: Please see below IMAGING: Right upper ext US: Scanning in the area of the swelling and redness in the right lateral deltoid region shows a 5.1 x 0.8 x 3.6 cm complex fluid collection in the subcutaneous space with surrounding edematous fat. This is consistent with a abscess. MICROBIOLOGY: Wound GS: Few WBC, Gram pos cocci in pairs and chains Wound Cx: MRSA Blood cx: NG ASSESSMENT: is a 25 yr old who is admitted for further treatment of RUE abscess with cellulitis. PLAN: RUE Abscess with Cellulitis s/p I&D 05/31/20 -WBC wnl , afebrile, further improved erythema and swelling -Wound cx: MRS -D/c with clindamycin, probiotic and F/u with surgery Tobacco Abuse -Smoking cessation education given DISPOSITION: D/c home today. TIME SPENT ON DISCHARGE: Greater than 30 minutes. Vital Signs/I&Os Vital Signs Date Time Temp Pulse Resp B/P (MAP) Pulse Ox O2 Delivery O2 Flow Rate FiO2 06/03/20 06:00 97.8 52 17 106/59 (75) 99 Room Air I&O- Last 24 Hours up to 6 AM 06/03/20 05:59 Intake Total 2060 ml Output Total 1100 ml Balance 960 ml Laboratory Data Labs 24H Laboratory Tests 2 06/03/20 06:19: Nucleated Red Blood Cells % (auto) 0.0, Anion Gap 5L, Glomerular Filtration Rate > 60.0, Calcium Level 8.9, Total Bilirubin 0.3, Aspartate Amino Transf (AST/SGOT) 10, Alanine Aminotransferase (ALT/SGPT) 15, Alkaline Phosphatase 80, Total Protein 6.7, Albumin 3.3, Albumin/Globulin Ratio 1.0, Vancomycin Level Trough 24.7H CBC/BMP Laboratory Tests 06/03/20 06:19 Microbiology Microbiology 05/31/20 Gram Stain - Final, Complete 05/31/20 Abscess Culture - Final, Complete Staph.aureus Methicillin Resis 05/31/20 Blood Culture - Preliminary, Resulted No Growth after 48 hours. All Specime... 05/31/20 Blood Culture - Preliminary, Resulted No Growth after 72 hours. All specime... 05/31/20 Blood Culture - Preliminary, Resulted No Growth after 72 hours. All specime... Discharge Medications Scheduled Clindamycin Hcl (Clindamycin HCl) 150 Mg Capsule, 150 MG PO QID Lactobacillus Acidophilus (Probiotic Acidophilus) 1.5 Mg Capsule, 1 CAP PO BIDWM Scheduled PRN Acetaminophen (Tylenol Extra Strength) 500 Mg Tablet, 500 MG PO Q4H PRN for PAIN, (Reported) Ibuprofen (Ibu-200) 200 Mg Tablet, 400 MG PO Q4H PRN for PAIN, (Reported) Allergies Coded Allergies: No Known Allergies (Unverified , 02/09/17) Hoda Lehman MD Jun 03, 2020 19:55
== END 2020-06-03 11:24 | disposition home or self-care (01) | DRG 364 ==
LOC: M ED 15:23 → EEVIPCON 20:09 → M ED INP 20:09 → M MSPAV 23:58
PROVIDERS: ADMIT Internal Medicine; ATTEND Internal Medicine
PROC: 0J9D0ZZ Drainage of Right Upper Arm Subcutaneous Tissue and Fascia, Open Approach (ICD-10-PCS; principal; 2020-05-31)
DX: L02.413 Cutaneous abscess of right upper limb (principal); L03.113 Cellulitis of right upper limb; F17.200 Nicotine dependence, unspecified, uncomplicated; Z20.822 Contact with and (suspected) exposure to COVID-19

== ENCOUNTER 2021-05-11 12:52 | Emergency (ER) | payer MEDICAID ==
[~2021-05-11] VITALS: Ht 170.2 cm; Wt 68.2 kg
[~2021-05-11 12:52] MED LIST changes: +ACET-897 PO; +CLIN150C17 PO; +DOXY-443 PO; -DOXY100C37 PO; +IBUP200T46 PO; +PROB1CAP10 PO
[2021-05-11 13:57] LABS: HEMATOCRIT 44.2 % (42.0-52.0); HEMOGLOBIN 15.3 g/dl (13.5-17.5); MEAN CORPUSCULAR HEMOGLOBIN 30.8 pg (27.0-33.0); MEAN CORPUSCULAR HGB CONC 34.6 g/dl (32.0-36.5); MEAN CORPUSCULAR VOLUME 88.9 fl (80.0-96.0); PLATELET COUNT, AUTOMATED 254 10^3/uL (150-450); RED BLOOD COUNT 4.97 10^6/uL (4.30-6.10); WHITE BLOOD COUNT 12.5 10^3/uL (4.0-10.0)
[2021-05-11 14:18] LABS: AMPHETAMINES LEVEL URINE NEGATIVE (NEGATIVE); BARBITURATES URINE NEGATIVE (NEGATIVE); BENZODIAZEPINES URINE NEGATIVE (NEGATIVE); CANNABINOIDS URINE POSITIVE (NEGATIVE); COCAINE METABOLITE URINE NEGATIVE (NEGATIVE); METHADONE URINE NEGATIVE (NEGATIVE); OPIATES URINE NEGATIVE (NEGATIVE); PHENCYCLIDINE URINE NEGATIVE (NEGATIVE)
[2021-05-11 14:55] LABS: ACETAMINOPHEN LEVEL < 2.0 UG/ML (10.0-30.0); ALBUMIN 4.6 GM/DL (3.2-5.2); ALT/SGPT 16 U/L (12-78); BILIRUBIN,DIRECT 0.1 MG/DL (0.0-0.2); BILIRUBIN,TOTAL 0.4 MG/DL (0.2-1.0); BLOOD UREA NITROGEN 8 MG/DL (7-18); CALCIUM LEVEL 9.8 MG/DL (8.5-10.1); CARBON DIOXIDE LEVEL 30 MEQ/L (21-32); CHLORIDE LEVEL 109 MEQ/L (98-107); CREATININE FOR GFR 0.86 MG/DL (0.70-1.30); ETHYL ALCOHOL (ETHANOL) < 0.003 % (0.000-0.010); GLOMERULAR FILTRATION RATE > 60.0 (>60); GLUCOSE, FASTING 88 MG/DL (70-100); POTASSIUM SERUM 4.1 MEQ/L (3.5-5.1); SALICYLATE LEVEL 4.8 MG/DL (5.0-30.0); SODIUM LEVEL 143 MEQ/L (136-145); TOTAL PROTEIN 7.8 GM/DL (6.4-8.2)
[2021-05-11 15:01] LABS: RSV AMPLIFICATION NEGATIVE (NEGATIVE)
[2021-05-11 16:13] VITALS: BP 117/64
== END 2021-05-11 16:16 | disposition home or self-care (01) ==
LOC: M ED 12:52
DX: F43.0 Acute stress reaction (principal); F32.A Depression, unspecified; F41.9 Anxiety disorder, unspecified; F17.200 Nicotine dependence, unspecified, uncomplicated